=== PATIENT | female | born 1960 | race Caucasian/White ===

== ENCOUNTER 2022-01-28 08:14 | Emergency (ER) | payer OTHER ==
[~2022-01-28] VITALS: Ht 154.9 cm; Wt 63.5 kg
[2022-01-28] MEDS ORDERED: ATARAX25 MG PO (15:13)
[2022-01-28] MEDS ORDERED: ZYRTEC10 M3 PO (15:13)
== END 2022-01-28 15:17 | disposition home or self-care (01) ==
LOC: ER 08:14
DX: B34.9 Viral infection, unspecified (principal); R21 Rash and other nonspecific skin eruption; Z20.822 Contact with and (suspected) exposure to COVID-19

== ENCOUNTER → 2024-06-17 | Emergency (ER) | payer OTHER ==
[~2024-06-17] VITALS: Ht 154.9 cm; Wt 62.6 kg
[~2024-06-17] MED LIST: ATARAX25 MG PO; ZYRTEC10 M3 PO
== END | disposition left against medical advice (07) ==
LOC: ER 00:49
DX: Z53.21 Procedure and treatment not carried out due to patient leaving prior to being seen by health care provider (principal)